=== PATIENT | male | born 2000 | race Caucasian/White ===

== ENCOUNTER 2024-01-19 20:06 | Emergency (ER) | payer BC ==
[2024-01-19 20:16] VITALS: BP 112/69; PULSE 86; RESP 20; TEMP 99.3; BMI 22.2
[2024-01-19] MEDS: DIPHTH,PERTUSS(ACELL),TET 0.5 ML DISP.SYRIN IM ONE (20:55)
[2024-01-19] MEDS ORDERED: DIPHTH,PERTUSS(ACELL),TET 0.5 ML DISP.SYRIN IM ONE (20:57)
== END 2024-01-19 21:17 | disposition home or self-care (01) ==
LOC: JERFT 20:06
PROC: 0HQ0XZZ Repair Scalp Skin, External Approach (ICD-10-PCS; principal; 2024-01-19)
PROC: 3E0234Z Introduction of Serum, Toxoid and Vaccine into Muscle, Percutaneous Approach (ICD-10-PCS; 2024-01-19)
DX: S01.01XA Laceration without foreign body of scalp, initial encounter (principal); W01.198A Fall on same level from slipping, tripping and stumbling with subsequent striking against other object, initial encounter; Z23 Encounter for immunization
CPT/HCPCS: 90715; 99282-25

== ENCOUNTER 2024-02-05 10:25 | Emergency (ER) | payer BC ==
[2024-02-05 10:32] VITALS: BP 106/68; PULSE 58; RESP 18; TEMP 98; BMI 22.2
== END 2024-02-05 11:13 | disposition home or self-care (01) ==
LOC: JERFT 10:25
DX: Z48.02 Encounter for removal of sutures (principal)
CPT/HCPCS: 99281-25